=== PATIENT | male | born 1950 | race Caucasian/White ===

== ENCOUNTER 2020-04-20 11:45 | Emergency (ER) | payer MEDICARE, OTHER ==
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
[2020-04-20] MEDS ORDERED: RIVAROXABAN 15 MG TABLET PO STA (14:06)
--- NOTE | 2020-04-20 14:07 | Ultrasound Report ---
PROCEDURE: Duplex Ext Veins Left INDICATIONS: posterior pain/swelling hx/o DVT TECHNIQUE: Real-time imaging, as well as color and pulse Doppler interrogation, were performed of the lower extr emity deep veins from the inguinal ligament to the popliteal fossa. COMPARISON: None. FINDINGS: Exam is limited by body habitus and edema in the lower extremity. There is semiocclusive ec hogenic material within the distal superficial femoral vein and to a lesser degree in the deep femora l vein. Remaining deep veins. Patent. IMPRESSION: Partially occlusive thrombus in the superficial and deep femoral veins distally. Finding s would be consistent with chronic thrombus. Reviewed by: Ervin Agudelo MD on 04/20/2020 2:05 PM PDT Approved by: Ervin Agudelo MD on 04/20/2020 2:05 PM PDT Station ID: [id number]
[2020-04-20 14:12] VITALS: BP 160/92
== END 2020-04-20 14:39 | disposition home or self-care (01) ==
LOC: ED 11:45
DX: I82.452 Acute embolism and thrombosis of left peroneal vein (principal)
CPT/HCPCS: 93971; 99284; A9270

== ENCOUNTER 2021-03-16 03:20 | Outpatient (CLI) | payer MEDICARE, OTHER | END 2021-03-16 03:21 | disposition EMS.NT | LOC: EMS 03:20 | DX: R50.9 Fever, unspecified (principal) ==

== ENCOUNTER 2021-03-16 07:00 | Outpatient (CLI) | payer MEDICARE, OTHER ==
[2021-03-16 13:33] LABS: B. PARAPERTUSSIS- RESP PCR PAN NOT DETECTED; B. PERTUSSIS- RESP PCR PANEL NOT DETECTED; C. PNEUMONIAE- RESP PCR PANEL NOT DETECTED; CORONAVIRUS 229E-RESP PCR NOT DETECTED; CORONAVIRUS HKU1-RESP PCR NOT DETECTED; CORONAVIRUS NL63-RESP PCR NOT DETECTED; CORONAVIRUS OC43-RESP PCR NOT DETECTED; HUMAN METAPNEUMOVIRUS NOT DETECTED; INFLUENZA A- RESP PCR PANEL NOT DETECTED; INFLUENZA B - RESP PCR PANEL NOT DETECTED; M. PNEUMONIAE- RESP PCR PANEL NOT DETECTED; PARAINFLUENZA VIRUS 1 NOT DETECTED; PARAINFLUENZA VIRUS 2 NOT DETECTED; PARAINFLUENZA VIRUS 3 NOT DETECTED; PARAINFLUENZA VIRUS 4 NOT DETECTED; RHINOVIRUS/ENTEROVIRUS NOT DETECTED; RSV- RESP PCR PANEL NOT DETECTED; SARS-CoV-2 -RESP PCR PANEL NOT DETECTED
== END 2021-03-16 23:59 | disposition home or self-care (01) ==
LOC: COV 07:00
PROVIDERS: ATTEND Internal Medicine
DX: R05 Cough (principal); R50.9 Fever, unspecified; Z20.822 Contact with and (suspected) exposure to COVID-19
CPT/HCPCS: 0202U

== ENCOUNTER 2021-03-16 08:19 | Outpatient (CLI) | payer MEDICARE, OTHER ==
--- NOTE | 2021-03-16 12:28 | XRAY Report ---
PROCEDURE: Chest 2 View X-Ray INDICATIONS: COUGH TECHNIQUE: 2 view(s) of the chest. COMPARISON: None. FINDINGS: Surgical changes and devices: None. Lungs and pleura: No pleural effusions or pneumothorax. Lungs are clear. Mediastinum: Mediastinal contours are normal. Heart size is normal. Bones and chest wall: No suspicious bony abnormalities. Soft tissues appear unremarkable. IMPRESSION: No acute cardiopulmonary disease process. Reviewed by: Ann Marie Cool MD, PhD on 03/16/2021 12:26 PM PDT Approved by: Ann Marie Cool MD, PhD on 03/16/2021 12:26 PM PDT Station ID: [id number]
== END 2021-03-16 23:59 | disposition home or self-care (01) ==
LOC: DI.S 08:19
PROVIDERS: ATTEND Physician Assistant Medical
DX: R05 Cough (principal); R50.9 Fever, unspecified; Z20.822 Contact with and (suspected) exposure to COVID-19
CPT/HCPCS: 0202U

== ENCOUNTER 2021-04-07 12:20 | Outpatient (CLI) | payer MEDICARE, OTHER | END 2021-04-07 12:21 | disposition home or self-care (01) | LOC: LAB.S 12:20 | PROVIDERS: ATTEND Internal Medicine | DX: Z01.84 Encounter for antibody response examination (principal) | CPT/HCPCS: 36415; 86769 ==

== ENCOUNTER 2022-02-21 11:55 | Outpatient (CLI) | payer MEDICARE, OTHER ==
--- NOTE | 2022-02-22 00:36 | CT Report ---
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 Axial 5 mm soft tissue kernel reconstructions were performed as well as 8 mm axial MIP and cor onal and sagittal 5 mm reformations. For radiation dose reduction, the following was used: automate d exposure control, adjustment of mA and/or kV according to patient size. COMPARISON: Correlation is made with prior chest radiograph, 03/16/2021. No prior chest CT is availab le for comparison at the time of this dictation. FINDINGS: Image quality: Excellent. Lungs and pleura: No acute air space opacities. No pleural effusions or pneumothorax. Central and peripheral airways are patent and normal in caliber. Mediastinum: There is prominent coronary artery calcification. Heart size is normal. No pericardial effusion. No mediastinal adenopathy by size criteria. Thoracic aorta and central pulmonary arteries are normal in size. Focal wall thickening can be seen involving the proximal esophagus. Bones and chest wall: No suspicious bony lesions. No vertebral body compression fractures. Minimal dextroconvex sclerotic curvature is seen. Age-appropriate degenerative changes are seen. No axilla ry or supraclavicular adenopathy by size criteria. The thyroid is small in size. Abdomen: Enlarged gastrohepatic ligament lymph nodes are seen, as on series 3 image 60, with the larg est measuring 21 x 27 mm in greatest axial dimension. The visualized portions of the upper abdominal structures are otherwise within normal limits. IMPRESSION: Focal wall thickening can be seen involving the proximal esophagus, which is consistent with the give n history. Enlarged gastrohepatic ligament lymph nodes are seen, which are suspicious for metastatic disease. No abnormal pulmonary nodules are detected. Incidental note is made of: Prominent coronary artery calcification Reviewed by: Jeffry Banuelos MD on 02/21/2022 11:35 PM [facility] Approved by: Jeffry Banuelos MD on 02/21/2022 11:35 PM DOMIN[facility] Station ID: [id number]
== END 2022-02-21 11:56 | disposition home or self-care (01) ==
LOC: LAB 11:55
PROVIDERS: ATTEND Internal Medicine Hematology & Oncology
DX: C15.3 Malignant neoplasm of upper third of esophagus (principal); R59.0 Localized enlarged lymph nodes

== ENCOUNTER 2022-02-28 07:10 | Outpatient (CLI) | payer MEDICARE, OTHER ==
[2022-02-28 14:21] LABS: BASOPHILS % (AUTO) 0.8 %; EOSINOPHILS # (AUTO) 0.2 10^3/uL (0.0-0.7); EOSINOPHILS % (AUTO) 4.3 %; HCT - HEMATOCRIT 42.4 % (42.0-52.0); HGB - HEMOGLOBIN 14.6 g/dL (14.0-18.0); LYMPHOCYTES % (AUTO) 25.7 %; MEAN CORPUSCULAR HEMOGLOBIN 36.3 pg (27.0-31.0); MEAN CORPUSCULAR HGB CONC 34.4 g/dL (32.0-36.0); MEAN CORPUSCULAR VOLUME 105.5 fL (80.0-94.0); MEAN PLATELET VOLUME 9.6 fL (7.4-11.4); MONOCYTES # (AUTO) 0.4 10^3/uL (0.0-1.0); MONOCYTES % (AUTO) 10.2 %; NEUTROPHILS # (AUTO) 2.3 10^3/uL (1.5-6.6); NEUTROPHILS % (AUTO) 58.2 %; PLT - PLATELET COUNT 152 10^3/uL (130-450); RED BLOOD COUNT 4.02 10^6/uL (4.70-6.10); RED CELL DISTRIBUTION WIDTH 13.8 % (12.0-15.0); WHITE BLOOD COUNT 3.9 x10^3/uL (4.8-10.8)
[2022-02-28 15:10] LABS: ALBUMIN 4.4 g/dL (3.2-5.5); ALBUMIN/GLOBULIN RATIO 1.5 (1.0-2.2); BILIRUBIN,TOTAL 1.1 mg/dL (0.2-1.0); CALCIUM 9.2 mg/dL (8.5-10.3); POTASSIUM 3.9 mmol/L (3.5-5.0); TOTAL PROTEIN 7.4 g/dL (6.7-8.2)
[2022-02-28 15:19] LABS: FREE T3 2.27 pg/mL (2.5-3.9)
[2022-02-28 17:28] LABS: THYROID STIMULATING HORMONE 53.06 uIU/mL (0.34-5.60)
[2022-02-28 17:37] LABS: FREE T4 (FREE THYROXINE) < 0.25 ng/dL (0.58-1.64)
== END 2022-02-28 07:11 | disposition home or self-care (01) ==
LOC: LAB.S 07:10
PROVIDERS: ATTEND Internal Medicine Hematology & Oncology
DX: C15.3 Malignant neoplasm of upper third of esophagus (principal); D50.8 Other iron deficiency anemias; D51.8 Other vitamin B12 deficiency anemias; E03.8 Other specified hypothyroidism; I50.22 Chronic systolic (congestive) heart failure
CPT/HCPCS: 36415; 80053; 82533; 82607; 82728; 83540; 83615; 84439; 84443; 84466; 84481; 85025; 85651

== ENCOUNTER 2022-04-07 13:16 | Outpatient (CLI) | payer MEDICARE, OTHER | END 2022-04-07 13:17 | disposition home or self-care (01) | LOC: LAB 13:16 | PROVIDERS: ATTEND Ophthalmology | DX: Z01.812 Encounter for preprocedural laboratory examination (principal); H35.372 Puckering of macula, left eye; Z20.822 Contact with and (suspected) exposure to COVID-19 ==

== ENCOUNTER 2023-04-06 12:37 | Outpatient (CLI) | payer MEDICARE, OTHER ==
[2023-04-06 12:52] LABS: BASOPHILS % (AUTO) 0.2 %; EOSINOPHILS % (AUTO) 0.3 %; HGB - HEMOGLOBIN 14.3 g/dL (14.0-18.0); LYMPHOCYTES # (AUTO) 0.8 10^3/uL (1.5-3.5); LYMPHOCYTES % (AUTO) 6.8 %; MEAN CORPUSCULAR HEMOGLOBIN 33.9 pg (27.0-31.0); MEAN CORPUSCULAR VOLUME 99.5 fL (80.0-94.0); MEAN PLATELET VOLUME 8.9 fL (7.4-11.4); MONOCYTES # (AUTO) 0.6 10^3/uL (0.0-1.0); MONOCYTES % (AUTO) 5.2 %; NEUTROPHILS # (AUTO) 9.5 10^3/uL (1.5-6.6); NEUTROPHILS % (AUTO) 86.7 %; PLT - PLATELET COUNT 225 10^3/uL (130-450); RED BLOOD COUNT 4.22 10^6/uL (4.70-6.10); RED CELL DISTRIBUTION WIDTH 12.1 % (12.0-15.0)
[2023-04-06 13:31] LABS: ESTIMATED AVERAGE GLUCOSE 126 mg/dL (70-100)
[2023-04-06 13:34] LABS: ALBUMIN 4.3 g/dL (3.2-5.5); ALBUMIN/GLOBULIN RATIO 1.1 (1.0-2.2); BILIRUBIN,TOTAL 0.7 mg/dL (0.2-1.0); CALCIUM 10.2 mg/dL (8.5-10.3); CREATININE 0.9 mg/dL (0.6-1.3); CRP - C-REACTIVE PROTEIN 12.6 mg/dL (<0.5); POTASSIUM 4.4 mmol/L (3.5-4.5); TOTAL PROTEIN 8.2 g/dL (6.4-8.9)
[2023-04-06 14:53] LABS: THYROID STIMULATING HORMONE 2.81 uIU/mL (0.34-5.60)
[2023-04-06 15:00] LABS: FERRITIN 638.8 ng/mL (23.9-336.2)
[2023-04-07 08:09] LABS: VITAMIN D 25-HYDROXY 46.5 ng/mL (30.0-100.0)
[2023-04-10 19:07] LABS: FREE TESTOSTERONE(DIRECT) 5.3 pg/mL (6.6-18.1)
== END 2023-04-06 12:38 | disposition home or self-care (01) ==
LOC: LAB 12:37
PROVIDERS: ATTEND Internal Medicine Hematology & Oncology
DX: C15.3 Malignant neoplasm of upper third of esophagus (principal); E03.8 Other specified hypothyroidism; E11.9 Type 2 diabetes mellitus without complications; I82.532 Chronic embolism and thrombosis of left popliteal vein; E29.1 Testicular hypofunction; K86.1 Other chronic pancreatitis; K86.81 Exocrine pancreatic insufficiency
CPT/HCPCS: 36415; 80053; 82306; 82607; 82728; 83036; 83540; 83690; 84402; 84403; 84439; 84443; 84466; 85025; 85379; 85651; 86140